=== PATIENT | male | born 1960 | race Caucasian/White ===

== ENCOUNTER 2019-05-03 08:28 | Emergency (ER) | payer OTHER ==
[2019-05-03 08:56] VITALS: BP 171/87
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
== END 2019-05-03 09:13 | disposition home or self-care (01) ==
LOC: UCCORT 08:28
DX: T63.481A Toxic effect of venom of other arthropod, accidental (unintentional), initial encounter (principal); Y92.9 Unspecified place or not applicable; Z88.0 Allergy status to penicillin; F17.210 Nicotine dependence, cigarettes, uncomplicated
CPT/HCPCS: 99202; G0463